=== PATIENT | male | born 1980 | race Caucasian/White ===

== ENCOUNTER 2017-07-26 04:07 | Emergency (ER) | payer OTHER ==
[~2017-07-26] VITALS: Ht 180.3 cm; Wt 68.0 kg
[2017-07-26] MEDS ORDERED: BACTRIM DS TAB1 EACH PO (04:19)
[2017-07-26] MEDS ORDERED: ULTRAM 50MG TAB50 MG PO (05:32)
== END 2017-07-26 05:41 | disposition home or self-care (01) ==
LOC: ER 04:07
DX: L02.512 Cutaneous abscess of left hand (principal); F17.210 Nicotine dependence, cigarettes, uncomplicated; F10.99 Alcohol use, unspecified with unspecified alcohol-induced disorder; Z98.890 Other specified postprocedural states